=== PATIENT | female | born 1965 | race Caucasian/White ===

== ENCOUNTER → 2017-10-19 | Outpatient (CLI) | payer OTHER ==
--- NOTE | 2017-10-19 19:21 | Diagnostic Imaging Report ---
INDICATION: Pain. Three views of the left foot were obtained. FINDINGS: The alignment of the foot is normal. There is no fracture or dislocation. There is some degenerative spurring in the calcaneus. Soft tissues are unremarkable. IMPRESSION: Degenerative spurring in the calcaneus, otherwise unremarkable. Dictated by: Dictated on workstation # [id number]
== END ==
LOC: RAD 19:03
PROVIDERS: ATTEND Nurse Practitioner Family
DX: M77.32 Calcaneal spur, left foot (principal)
CPT/HCPCS: 73630